=== PATIENT | male | born 1970 | race Caucasian/White ===

== ENCOUNTER 2017-05-17 17:14 | Emergency (ER) | payer SELFPAY ==
[~2017-05-17] VITALS: Ht 167.6 cm; Wt 66.0 kg
[~2017-05-17 17:14] MED LIST: CHLO500T4 PO; IBUP-1773 PO
[2017-05-17] MEDS ORDERED: KETOROLAC 30 MG/ML VIAL IVP STA (17:21)
[2017-05-17] MEDS ORDERED: fentaNYL INJECTION 100 MCG/2 ML AMP IVP STA (17:21)
[2017-05-17] MEDS ORDERED: ACETAMINOPHEN 500 MG TAB (TYLENOL) PO STA (17:21)
[2017-05-17] MEDS ORDERED: NS IV 1000 ML 1,000 ML IV ONE (17:21)
[2017-05-17 17:41] LABS: BILIRUBIN,URINE NEGATIVE (NEGATIVE); KETONES,URINE NEGATIVE (NEGATIVE); LEUKOCYTE ESTERASE ,URINE 3+ (NEGATIVE); NITRITE,URINE POSITIVE (NEGATIVE); PH,URINE 8 (5-9); PROTEIN,URINE 2+ (NEGATIVE); UROBILINOGEN,URINE NORMAL (NORMAL)
[2017-05-17 17:42] LABS: WBC,URINE TNTC /HPF
--- NOTE | 2017-05-17 17:44 | Diagnostic Imaging Report ---
INDICATION: Fever EXAM: Portable chest at 5:38 PM FINDINGS: Heart size and pulmonary vasculature are normal. The lungs are clear. There are no effusions or pneumothoraces. IMPRESSION: Negative chest. Dictated by: Dictated on workstation # [id number]
--- NOTE | 2017-05-17 18:07 | ED General ---
General Chief Complaint: Fever-Adult/Adol Stated Complaint: FEVER Nursing Triage Note: c/o fever and pain in legs Nursing Sepsis Screen: Possible Sepsis Risk Source of Information: Patient, EMS Exam Limitations: No Limitations (BYRON GORDON MD) History of Present Illness Time Seen by Provider: 17:17 Initial Comments Here by EMS with report of high fever at home and pain. Reported the pain was in his legs but then states it's actually in his groin area and it hurts when he urinates. Says it doesn't hurt so bad when he starts to urinate but golden terribly at the end of urination. States he hasn't slept for 2 days due to the fever and pain. Patient is agitated and having difficulty staying on the bed but states that he can't walk because of the pain. 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 Requesting something for the fever and pain. Timing/Duration: 2-3 Days Severity: Moderate Modifying Factors: worse with Movement Associated Systoms: No Chest Pain, No Cough, Fever/Chills, No Nausea/Vomiting, No Shortness of Air, No Weakness (BYRON GORDON MD) Allergies and Home Medications Allergies Coded Allergies: No Known Drug Allergies (Unverified , 02/17/16) Home Medications Ibuprofen 600 Mg Tablet, 600 MG PO Q8H, (Reported) LAST FILLED 11/27/15 #90 Constitutional: see HPI, chills, fever EENTM: no symptoms reported Respiratory: no symptoms reported, No short of breath, No wheezing Cardiovascular: No chest pain, No edema Gastrointestinal: abdominal pain (suprapubic), No nausea, No vomiting Genitourinary: dysuria, frequency, pain Musculoskeletal: no symptoms reported Skin: no symptoms reported Psychiatric/Neurological: No Symptoms Reported (BYRON GORDON MD) All Other Systems Reviewed Negative Unless Noted: Yes (BYRON GORDON MD) Past Olywmct-Mkutgz-Xescix Hx Patient Social History Alcohol Use: Denies Use Recreational Drug Use: Yes Drug of Choice: smokes meth Smoking Status: Current Everyday Smoker Recent Foreign Travel: No Contact w/Someone Who Travel: No Recent Infectious Disease Expo: No Physical Abuse: No Sexual Abuse: No (BYRON GORDON MD) Immunizations Up To Date Tetanus Booster (TDap): Unknown (BYRON GORDON MD) Surgeries History of Surgeries: Yes Surgeries: Tonsillectomy (BYRON GORDON MD) Respiratory History of Respiratory Disorde: No (BYRON GORDON MD) Neurological History of Neurological Disord: No Neurological Disorders: Headaches /Migraines (BYRON GORDON MD) Reproductive System Hx Reproductive Disorders: No (BYRON GORDON MD) Gastrointestinal History of Gastrointestinal Di: No (BYRON GORDON MD) Musculoskeletal History of Musculoskeletal Dis: Yes (elbow pain) (BYRON GORDON MD) Endocrine History of Endocrine Disorders: No (BYRON GORDON MD) HEENT Loss of Vision: Denies Hearing Impairment: Denies (BYRON GORDON MD) Cancer History of Cancer: No (BYRON GORDON MD) Psychosocial History of Psychiatric Problem: Yes Behavioral Health Disorders: Depression Suicide Risk Score: 0 (BYRON GORDON MD) Integumentary History of Skin or Integumenta: No (BYRON GORDON MD) Blood Transfusions History of Blood Disorders: No Adverse Reaction to a Blood Tr: No (BYRON GORDON MD) Reviewed Nursing Assessment Reviewed/Agree w Nursing PMH: Yes (BYRON GORDON MD) Family Medical History Significant Family History: No Pertinent Family Hx (BYRON GORDON MD) Physical Exam-Suspected Sepsis Physical Exam Vital Signs Vital Sign - Last 12Hours 05/17/17 05/17/17 17:19 17:30 Temp 101.2 Pulse 114 Resp 18 B/P (MAP) 112/98 Pulse Ox 99 O2 Delivery Room Air (YEMI,CLAUDIA K DO) Vital Signs Capillary Refill : Less Than 3 Seconds (BYRON GORDON MD) Blood Pressure Mean: 103 General Appearance: WD/WN, Anxious, Mild Distress HEENT: PERRL/EOMI, Pharynx Normal Neck: Non Tender, Supple Respiratory: Lungs Clear, Normal Breath Sounds Cardiovascular: No Murmur, Tachycardia Gastrointestinal: Soft, No Guarding, No Rebound, Tenderness (suprapubic region) Back: Normal Inspection, No CVA Tenderness, No Vertebral Tenderness Extremity: Normal Capillary Refill, Normal Inspection, Normal Range of Motion, Non Tender, No Calf Tenderness Neurologic/Psychiatric: Alert, Oriented x3, Other (anxious and agitated.) Skin: normal color, warm/dry (BYRON GORDON MD) Focused Exam Evaluation Lactate Level Laboratory Tests 05/17/17 17:50: Lactic Acid Level 2.82*H (CLAUDIA GALEANO DO) Lactic Acid Level Laboratory Tests Test 05/17/17 17:50 Lactic Acid Level 2.82 MMOL/L (0.50-2.00) *H (YEMI,CLAUDIA K DO) Progress/Results/Core Measures Suspected Sepsis Recent Fever Within 48 Hours: Yes Infection Criteria Present: Suspected New Infection New/Unexplained Altered Menta: No Sepsis Screen: Possible Sepsis Risk Sepsis Diagnosis: SIRS Temperature:101.2 Pulse: 114 Respiratory Rate: 18 Blood Pressure 112 /98 Mean: 103 (BYRON GORDON MD) Results/Orders Lab Results Laboratory Tests Test 05/17/17 17:25 05/17/17 17:50 Range/Units Urine Color YELLOW Urine Clarity SLIGHTLY CLOUDY Urine pH 8 5-9 Urine Specific [place] 1.010 L 1.016-1.022 Urine Protein 2+ H NEGATIVE Urine Glucose (UA) NEGATIVE NEGATIVE Urine Ketones NEGATIVE NEGATIVE Urine Nitrite POSITIVE H NEGATIVE Urine Bilirubin NEGATIVE NEGATIVE Urine Urobilinogen NORMAL NORMAL MG/DL Urine Leukocyte Esterase 3+ H NEGATIVE Urine RBC (Auto) 2+ H NEGATIVE Urine RBC 10-25 H /HPF Urine WBC TNTC H /HPF Urine Crystals NONE /LPF Urine Bacteria LARGE H /HPF Urine Casts NONE /LPF Urine Mucus NEGATIVE /LPF Urine Culture Indicated YES White Blood Count 12.2 H 4.3-11.0 10^3/uL Red Blood Count 4.04 L 4.35-5.85 10^6/uL Hemoglobin 12.6 L 13.3-17.7 G/DL Hematocrit 37 L 40-54 % Mean Corpuscular Volume 92 80-99 FL Mean Corpuscular Hemoglobin 31 25-34 PG Mean Corpuscular Hemoglobin Concent 34 32-36 G/DL Red Cell Distribution Width 12.1 10.0-14.5 % Platelet Count 383 130-400 10^3/uL Mean Platelet Volume 8.7 7.4-10.4 FL Neutrophils (%) (Auto) 93 H 42-75 % Lymphocytes (%) (Auto) 4 L 12-44 % Monocytes (%) (Auto) 3 0-12 % Eosinophils (%) (Auto) 0 0-10 % Basophils (%) (Auto) 0 0-10 % Neutrophils # (Auto) 11.3 H 1.8-7.8 X 10^3 Lymphocytes # (Auto) 0.5 L 1.0-4.0 X 10^3 Monocytes # (Auto) 0.4 0.0-1.0 X 10^3 Eosinophils # (Auto) 0.0 0.0-0.3 10^3/uL Basophils # (Auto) 0.0 0.0-0.1 10^3/uL Neutrophils % (Manual) 85 % Lymphocytes % (Manual) 5 % Monocytes % (Manual) 0 % Eosinophils % (Manual) 0 % Basophils % (Manual) 0 % Band Neutrophils 10 % Blood Morphology Comment NORMAL Prothrombin Time 13.7 12.2-14.7 SEC INR Comment 1.0 0.8-1.4 Activated Partial Thromboplast Time 32 24-35 SEC Sodium Level 133 L 135-145 MMOL/L Potassium Level 4.1 3.6-5.0 MMOL/L Chloride Level 100 98-107 MMOL/L Carbon Dioxide Level 24 21-32 MMOL/L Anion Gap 9 5-14 MMOL/L Blood Urea Nitrogen 12 7-18 MG/DL Creatinine 1.25 0.60-1.30 MG/DL Estimat Glomerular Filtration Rate > 60 BUN/Creatinine Ratio 10 Glucose Level 132 H 70-105 MG/DL Lactic Acid Level 2.82 *H 0.50-2.00 MMOL/L Calcium Level 9.5 8.5-10.1 MG/DL Total Bilirubin 0.9 0.1-1.0 MG/DL Aspartate Amino Transf (AST/SGOT) 15 5-34 U/L Alanine Aminotransferase (ALT/SGPT) 15 0-55 U/L Alkaline Phosphatase 114 40-136 U/L Total Protein 7.2 6.4-8.2 GM/DL Albumin 4.0 3.2-4.5 GM/DL (YEMI,CLAUDIA K DO) My Orders Orders - YEMI,CLAUDIA K DO Ct Abd/Pelvis Wo(Kidney Stone) (05/17/17 18:08) Abdomen/Kub 1view (05/17/17 18:08) Ceftriaxone Injection (Rocephin Injectio (05/17/17 19:00) Levofloxacin Tablet (Levaquin Tablet) (05/17/17 18:59) (CLAUDIA GALEANO DO) Medications Given in ED Current Medications Medications Dose Ordered Sig/Doyle Route Start Time Stop Time Status Last Admin Dose Admin Sodium Chloride 1,000 ml @ 0 mls/hr Q0M ONCE IV 05/17/17 17:21 05/17/17 17:24 DC 05/17/17 17:59 0 MLS/HR (CLAUDIA GALEANO DO) Vital Signs/I&O Vital Sign - Last 12Hours 05/17/17 05/17/17 17:19 17:30 Temp 101.2 Pulse 114 Resp 18 B/P (MAP) 112/98 Pulse Ox 99 O2 Delivery Room Air Intake and Output 05/18/17 00:00 Intake Total 1000 ml Balance 1000 ml (CLAUDIA GALEANO DO) Vital Signs/I&O Capillary Refill : Less Than 3 Seconds (BRYON GORDON MD) Blood Pressure Mean: 103 Progress Note : Progress Note Seen and evaluated. IV, labs, UA, chest x-ray, blood cultures and lactic acid ordered. Normal saline 1 L bolus. Fentanyl 50 g IV, Toradol 30 mg IV ordered. Acetaminophen 1000 mg by mouth ordered. Patient initially was refusing IV until somebody can hold his hand. He is waiting for his who is unable to come to the ER. He is requesting only a female nurse. Patient was able to walk to the bathroom to give the urinary sample. He did do the chest x-ray. Ultimately nursing was able to get IV access. Care transferred to Dr. Galeano at 1805 pending laboratory studies. (BYRON GORDON MD) Progress Note : Progress Note 1805--ASSUMED CARE FROM DR. GORDON, ALL STUDIES PENDING UNEVENTFUL ER STAY VITALS STABLE, TEMP DOWN AND HR DOWN AT DISMISSAL. (CLAUDIA GALEANO DO) Diagnostic Imaging Diagonstic Imaging: Xray Plain Films/CT/US/NM/MRI: chest Comments NAME: YOSEPH JIM J MED REC#: [id number] PT STATUS: REG ER : 1970 PHYSICIAN: BYRON GORDON MD ADMIT DATE: 05/17/17/ER Signed Date of Exam: 05/17/17 CHEST 1 VIEW, AP/PA ONLY INDICATION: Fever EXAM: Portable chest at 5:38 PM FINDINGS: Heart size and pulmonary vasculature are normal. The lungs are clear. There are no effusions or pneumothoraces. IMPRESSION: Negative chest. Dictated by: Dictated on workstation # [id number] Dict: 05/17/171739 Trans: 05/17/171745 Interpreted by: BYRON MEJIA MD Electronically signed by: BYRON MEJIA MD 05/17/171745 (BYRON GORDON MD) Comments KUB--NO ACUTE PROCESS CT ABDOMEN/PELVIS--NO ACUTE PROCESS, CONSTIPATION PER RADIOLOGIST REPORTS @ 1857 Reviewed: Reviewed by Me (CLAUDIA GALEANO DO) Departure Impression Impression: Primary Impression: UTI (urinary tract infection) Disposition: 01 HOME, SELF-CARE Condition: Improved Departure-Patient Inst. Referrals: [facility] (PCP/Family) Primary Care Physician Patient Instructions: Urinary Tract Infection, Adult (DC) Add. Discharge Instructions: LOTS OF CLEAR LIQUIDS--NO COFFEE, POP OR TEA, DRINK ENOUGH FLUIDS SO YOU ARE URINATING EVERY 2-3 HOURS WHILE AWAKE ALTERNATE TYLENOL AND MOTRIN EVERY 2-3 HOURS NEEDED FOR PAIN OR FEVER FOLLOW UP WITH [facility] IN 2-3 DAYS FOR FURTHER CARE RETURN TO ER IF WORSE All discharge instructions reviewed with patient and/or family. Voiced understanding. Scripts Levofloxacin (Levaquin) 500 Mg Tablet 500 MG PO DAILY for INFECTION, #10 TAB Prov: CLAUDIA GALEANO DO 05/17/17 BYRON GORDON MD May 17, 2017 18:07 CLAUDIA GALEANO DO May 17, 2017 18:58
[2017-05-17 18:13] LABS: BASOPHILS % (AUTO) 0 % (0-10); EOSINOPHILS % (AUTO) 0 % (0-10); LYMPHOCYTES # (AUTO) 0.5 X 10^3 (1.0-4.0); LYMPHOCYTES % (AUTO) 4 % (12-44); MEAN CORPUSCULAR HEMOGLOBIN 31 PG (25-34); MEAN CORPUSCULAR HGB CONC 34 G/DL (32-36); MEAN CORPUSCULAR VOLUME 92 FL (80-99); MEAN PLATELET VOLUME 8.7 FL (7.4-10.4); MONOCYTES # (AUTO) 0.4 X 10^3 (0.0-1.0); MONOCYTES % (AUTO) 3 % (0-12); NEUTROPHILS # (AUTO) 11.3 X 10^3 (1.8-7.8); NEUTROPHILS % (AUTO) 93 % (42-75); PLATELET COUNT 383 10^3/uL (130-400); RED BLOOD COUNT 4.04 10^6/uL (4.35-5.85); RED CELL DISTRIBUTION WIDTH 12.1 % (10.0-14.5); WHITE BLOOD COUNT 12.2 10^3/uL (4.3-11.0)
[2017-05-17 18:21] LABS: PROTHROMBIN TIME PATIENT 13.7 SEC (12.2-14.7)
[2017-05-17 18:32] LABS: ALANINE AMINOTRANSFERASE 15 U/L (0-55); ANION GAP 9 MMOL/L (5-14); ASPARTATE AMINO TRANSFERASE 15 U/L (5-34); BILIRUBIN,TOTAL 0.9 MG/DL (0.1-1.0); BLOOD UREA NITROGEN 12 MG/DL (7-18); BUN/CREATININE RATIO 10; CALCIUM 9.5 MG/DL (8.5-10.1); CARBON DIOXIDE 24 MMOL/L (21-32); CHLORIDE 100 MMOL/L (98-107); CREATININE SERUM 1.25 MG/DL (0.60-1.30); GFR ESTIMATED > 60; GLUCOSE 132 MG/DL (70-105); POTASSIUM 4.1 MMOL/L (3.6-5.0); SODIUM 133 MMOL/L (135-145); TOTAL PROTEIN 7.2 GM/DL (6.4-8.2)
[2017-05-17 18:38] LABS: BAND NEUTROPHILS 10 %; BASOPHILS % (MANUAL) 0 %; EOSINOPHILS % (MANUAL) 0 %; LYMPHOCYTES % (MANUAL) 5 %; NEUTROPHILS % (MANUAL) 85 %
--- NOTE | 2017-05-17 18:45 | Diagnostic Imaging Report ---
INDICATION: Left flank and groin pain. EXAM: KUB at 6:52 PM FINDINGS: Bowel gas pattern is normal. There are no pathologic masses or calcifications. IMPRESSION: Negative abdomen. Dictated by: Dictated on workstation # [id number]
--- NOTE | 2017-05-17 18:45 | Diagnostic Imaging Report ---
PROCEDURE: CT urinary tract, rule out kidney stone. TECHNIQUE: Multiple contiguous axial images were obtained through the abdomen and pelvis without the use of intravenous contrast. INDICATION: Left flank pain FINDINGS: The lung bases are clear. The liver appears normal. The gallbladder is present. Pancreas is normal. Spleen is not enlarged. Adrenals and kidneys appear normal. There is some calcific atherosclerosis of the aorta but no aneurysm. The appendix is normal. Small bowel was not dilated. There is a moderate amount of stool in the colon. The colon is otherwise unremarkable. The urinary bladder is normal. The prostate and seminal vesicles are unremarkable. IMPRESSION: Probable constipation. Dictated by: Dictated on workstation # [id number]
[2017-05-17] MEDS ORDERED: LEVOFLOXACIN 500 MG TAB (LEVAQUIN) PO STA (18:59)
[2017-05-17] MEDS ORDERED: cefTRIAXone INJECTION 1,000 MG in NS (IVPB) 50 ML IV ONE (19:00)
[2017-05-17] MEDS ORDERED: LEVO500T2 PO (19:10)
[2017-05-17 19:25] VITALS: BP 112/60
== END 2017-05-17 19:25 | disposition home or self-care (01) ==
LOC: EDUNIT# 17:14 → ER 17:15
DX: G43.909 Migraine, unspecified, not intractable, without status migrainosus; J06.9 Acute upper respiratory infection, unspecified; F32.9 Major depressive disorder, single episode, unspecified; F17.200 Nicotine dependence, unspecified, uncomplicated; F15.10 Other stimulant abuse, uncomplicated
CPT/HCPCS: 36415; 71010; 74000; 74176; 80053; 81000; 83605; 85007; 85027; 85610; 85730; 87040; 87077; 87088; 87186; 96361; 96374; 96375

== ENCOUNTER 2019-11-02 17:54 | Emergency (ER) | payer SELFPAY ==
[~2019-11-02] VITALS: Ht 177 cm; Wt 79.4 kg
[~2019-11-02 17:54] MED LIST changes: +LEVO500T2 PO
[2019-11-02] MEDS ORDERED: ETOMIDATE IV SOLN 20 MG/10 ML VIAL IV ONE (17:59)
[2019-11-02] MEDS ORDERED: NS IV 1000 ML 1,000 ML IV SCH ×3 (17:59→20:00)
[2019-11-02] MEDS ORDERED: ROCURONIUM 10 MG/ML 5 ML SYRINGE IV ONE (17:59)
[2019-11-02 18:08] LABS: BASOPHILS % (AUTO) 1 % (0-10); EOSINOPHILS # (AUTO) 0.3 10^3/uL (0.0-0.3); EOSINOPHILS % (AUTO) 3 % (0-10); HEMATOCRIT 46 % (40-54); HEMOGLOBIN 15.5 G/DL (13.3-17.7); LYMPHOCYTES # (AUTO) 4.2 X 10^3 (1.0-4.0); LYMPHOCYTES % (AUTO) 48 % (12-44); MEAN CORPUSCULAR HEMOGLOBIN 32 PG (25-34); MEAN CORPUSCULAR HGB CONC 34 G/DL (32-36); MEAN CORPUSCULAR VOLUME 96 FL (80-99); MEAN PLATELET VOLUME 8.5 FL (7.4-10.4); MONOCYTES # (AUTO) 0.7 X 10^3 (0.0-1.0); MONOCYTES % (AUTO) 8 % (0-12); NEUTROPHILS # (AUTO) 3.6 X 10^3 (1.8-7.8); NEUTROPHILS % (AUTO) 41 % (42-75); PLATELET COUNT 357 10^3/uL (130-400); RED CELL DISTRIBUTION WIDTH 12.9 % (10.0-14.5); WHITE BLOOD COUNT 8.7 10^3/uL (4.3-11.0)
[2019-11-02] MEDS ORDERED: PROPOFOL DRIP (ICU) 100 ML IV ONE (18:09)
[2019-11-02 18:12] LABS: BILIRUBIN,URINE NEGATIVE (NEGATIVE); CLARITY,URINE CLEAR; COLOR,URINE YELLOW; GLUCOSE, URINE (UA) NEGATIVE (NEGATIVE); KETONES,URINE NEGATIVE (NEGATIVE); LEUKOCYTE ESTERASE ,URINE NEGATIVE (NEGATIVE); NITRITE,URINE NEGATIVE (NEGATIVE); PH,URINE 6.5 (5-9); PROTEIN,URINE NEGATIVE (NEGATIVE)
--- NOTE | 2019-11-02 18:15 | NUR ---
1815 Preoxygenating patient. BP 160/106 Pulse 129 SPO2 100%
--- NOTE | 2019-11-02 18:23 | NUR ---
1817 20MG ETOMIDATE 1818 50MG ROCURONIUM 1819 + COLOR CHANGE. 21 AT THE TEETH. #8 ET TUBE. 1820 16Fr OG TUBE 1823 PROPOFOL DRIP INITIATED (30MCG/KG/HR PER PROVIDER ORDER).
--- NOTE | 2019-11-02 18:24 | NUR ---
VENT SETTINGS- FIO2 21%, PEEP 5, RATE 18, TITAL VOLUME 500.
[2019-11-02 18:27] LABS: AMPHETAMINE SCREEN, URINE POSITIVE (NEGATIVE); BARBITURATE SCREEN URINE NEGATIVE (NEGATIVE); BENZODIAZEPINES SCREEN URINE NEGATIVE (NEGATIVE); CANNABINOID SCREEN, URINE NEGATIVE (NEGATIVE); COCAINE SCREEN URINE NEGATIVE (NEGATIVE); METHADONE STAT NEGATIVE (NEGATIVE); METHAMPHETAMINE SCREEN URINE S POSITIVE (NEGATIVE); OPIATE SCREEN URINE NEGATIVE (NEGATIVE); OXYCODONE STAT NEGATIVE (NEGATIVE); PROPOXYPHENE STAT NEGATIVE (NEGATIVE); TRICYCLIC ANTIDEPRESSANTS SCRE NEGATIVE (NEGATIVE)
[2019-11-02 18:30] LABS: ALANINE AMINOTRANSFERASE 58 U/L (0-55); ALBUMIN 4.6 GM/DL (3.2-4.5); ALKALINE PHOSPHATASE 133 U/L (40-136); BILIRUBIN,TOTAL 0.2 MG/DL (0.1-1.0); BUN/CREATININE RATIO 9; CALCIUM 9.5 MG/DL (8.5-10.1); CARBON DIOXIDE 25 MMOL/L (21-32); CHLORIDE 107 MMOL/L (98-107); CREATININE SERUM 1.04 MG/DL (0.60-1.30); GFR ESTIMATED > 60; POTASSIUM 3.9 MMOL/L (3.6-5.0); SALICYLATE < 5.0 MG/DL (5.0-20.0); SODIUM 143 MMOL/L (135-145); TOTAL PROTEIN 7.8 GM/DL (6.4-8.2)
[2019-11-02 18:31] LABS: ABG BASE EXCESS 2.2 MMOL/L (-2.5-2.5); ABG OXYGEN SATURATION 99 % (94-100); ABG PCO2 41 MMHG (35-45); ABG PH 7.42 (7.37-7.43); ABG PO2 116 MMHG (79-93); ABG TCO2 27.4 MMOL/L (21.0-31.0); ALLENS TEST POSITIVE
[2019-11-02 18:32] LABS: PATIENT TEMP 37.5; VENTILATOR NO
[2019-11-02 18:33] LABS: ACETAMINOPHEN < 10 UG/ML (10-30)
[2019-11-02] MEDS ORDERED: DEXTROSE 50% 50 ML (IMS) SYR ONE (18:33)
[2019-11-02 18:35] LABS: GLUCOSE 51 MG/DL (70-105)
--- NOTE | 2019-11-02 18:36 | ED Neurological Problem ---
General Chief Complaint: Overdose Stated Complaint: OVERDOSE Nursing Triage Note: pt to rm 7 by wheelchair with complaint of overdose. per friend pt took diphenhydramine. states bottle was brand new and had 96. bottle now has 42 remaining. pts eyes are open, but not reactive to stimuli. Nursing Sepsis Screen: No Definite Risk Source: patient, family Exam Limitations: clinical condition History of Present Illness Date Seen by Provider: Nov 02, 2019 Time Seen by Provider: 17:50 Initial Comments Patient is brought in by his daughter in law to the emergency room by private conveyance. Patient does not contribute anything to the history. He can be made to open his eyes with noxious stimuli however he will not acknowledge the examiner speaking to him shaking his head squeezing hands etc. His eyes dark furtively around the room. He has a history of having taken most of a brand-new bottle of diphenhydramine 50 mg tablets. The bottle originally had 96 tablets and has 42 left. This would be about 54 tablets of 50 mg diphenhydramine. No history of fever. Unknown intention for taking the medication. He does have a history of using methamphetamines. Patient and family give no more meaningful history. After the examiner arrived in the ER the patient's family had ordered and sent out to the vehicle to wait. Security was sent out to collect family and bring them to the family room for further history and security states they were unable to find anybody in the parking lot. Allergies and Home Medications Allergies Coded Allergies: No Known Drug Allergies (Unverified , 02/17/16) Home Medications Ibuprofen 600 Mg Tablet, 600 MG PO Q8H, (Reported) LAST FILLED 11/27/15 #90 Levofloxacin 500 Mg Tablet, 500 MG PO DAILY Prescribed by: CLAUDIA BRAGG on 05/17/171909 Patient Home Medication List Home Medication List Reviewed: Yes Review of Systems Review of Systems Constitutional: see HPI (the patient contributes no history) Past Rvewhaj-Bylllu-Ctwfrm Hx Patient Social History Alcohol Use: Denies Use Recreational Drug Use: Yes Drug of Choice: smokes meth Smoking Status: Current Everyday Smoker Recent Foreign Travel: No Contact w/Someone Who Travel: No Recent Infectious Disease Expo: No Immunizations Up To Date Tetanus Booster (TDap): Unknown PED Vaccines UTD: Yes Past Medical History Surgeries: Yes Tonsillectomy Respiratory: No Neurological: No Headaches /Migraines Reproductive Disorders: No Gastrointestinal: No Musculoskeletal: Yes (elbow pain) Endocrine: No Loss of Vision: Denies Hearing Impairment: Denies Cancer: No Psychosocial: Yes Depression Integumentary: No Blood Disorders: No Adverse Reaction/Blood Tranf: No Family Medical History No Pertinent Family Hx Physical Exam Vital Signs Vital Signs - First Documented 11/02/19 17:54 Temp 37.5 Pulse 136 Resp 28 B/P (MAP) 161/109 (126) Pulse Ox 100 O2 Delivery Room Air Capillary Refill : Less Than 3 Seconds Height, Weight, BMI Height: 5'6" Weight: 145lbs. 6.4oz. 65.196978et; 25.00 BMI Method:Stated General Appearance: WD/WN, moderate distress, other (of hot, dry, not sweating) HEENT: PERRL/EOMI, normal ENT inspection, TMs normal; No pharynx normal (oropharynx is dry) Neck: full range of motion, supple, normal inspection Respiratory: chest non-tender, lungs clear, normal breath sounds, respiratory distress (30 breaths per minute) Cardiovascular: normal peripheral pulses, regular rate, rhythm, no edema, tachycardia (130-140) Peripheral Pulses: 2+ Radial Pulses (R), 2+ Radial Pulses (L) Gastrointestinal: normal bowel sounds, non tender, soft Extremities: non-tender, normal inspection, no pedal edema Neurologic/Psychiatric: disoriented x 3, other (nonverbal, agitated) Crainal Nerves: other (pupils 3 mm equal and nonreactive to light) Skin: normal color, warm/dry Procedures/Interventions Reason for Intubation: GCS with pupil score 6 points. Date of ETT Placement: Nov 02, 2019 Time of ETT Placement: 18:19 Intubation Method: orotracheal Tube Size: 8.0 Medications: Etomidate (20 mg), Rocuronium (50 mg) Positive End Tide CO2: Yes Breath Sounds after Intubation: bilateral-equal Intubation Complications: no complications Post Intubation Xray: Yes Explained the situation and need for intubation to the patient and he made no indication one way or the other that he could understand her here what I was saying despite multiple attempts. Family was not available and it was decided to intubate him based on emergency need. Staff was summonsed and the room and patient were prepared. We used a [employer] video endoscope to get good clean access of his upper airway and vocal cords after etomidate and rocuronium were administered. We're able to easily pass an 8.0 ET tube inflate the cuff at 21 cm at the upper gums. We secured it in place had good fogging of the tube, color change on capnography paper indicator and bilateral, symmetric breath sounds without any sounds over the epigastric region. Patient's oxygen sats did not go below 100%. Ventilator was started at 500 tidal volume, 18 respiratory, PEEP of 5 and 21% FiO2. Patient is tolerating this well. Propofol was initiated. Progress/Results/Core Measures Results/Orders Lab Results Laboratory Tests Test 11/02/19 18:02 11/02/19 18:04 11/02/19 18:05 11/02/19 18:09 Range/Units White Blood Count 8.7 4.3-11.0 10^3/uL Red Blood Count 4.78 4.35-5.85 10^6/uL Hemoglobin 15.5 13.3-17.7 G/DL Hematocrit 46 40-54 % Mean Corpuscular Volume 96 80-99 FL Mean Corpuscular Hemoglobin 32 25-34 PG Mean Corpuscular Hemoglobin Concent 34 32-36 G/DL Red Cell Distribution Width 12.9 10.0-14.5 % Platelet Count 357 130-400 10^3/uL Mean Platelet Volume 8.5 7.4-10.4 FL Neutrophils (%) (Auto) 41 L 42-75 % Lymphocytes (%) (Auto) 48 H 12-44 % Monocytes (%) (Auto) 8 0-12 % Eosinophils (%) (Auto) 3 0-10 % Basophils (%) (Auto) 1 0-10 % Neutrophils # (Auto) 3.6 1.8-7.8 X 10^3 Lymphocytes # (Auto) 4.2 H 1.0-4.0 X 10^3 Monocytes # (Auto) 0.7 0.0-1.0 X 10^3 Eosinophils # (Auto) 0.3 0.0-0.3 10^3/uL Basophils # (Auto) 0.0 0.0-0.1 10^3/uL Sodium Level 143 135-145 MMOL/L Potassium Level 3.9 3.6-5.0 MMOL/L Chloride Level 107 98-107 MMOL/L Carbon Dioxide Level 25 21-32 MMOL/L Anion Gap 11 5-14 MMOL/L Blood Urea Nitrogen 9 7-18 MG/DL Creatinine 1.04 0.60-1.30 MG/DL Estimat Glomerular Filtration Rate > 60 BUN/Creatinine Ratio 9 Glucose Level 51 *L 70-105 MG/DL Calcium Level 9.5 8.5-10.1 MG/DL Corrected Calcium 8.5-10.1 MG/DL Total Bilirubin 0.2 0.1-1.0 MG/DL Aspartate Amino Transf (AST/SGOT) 38 H 5-34 U/L Alanine Aminotransferase (ALT/SGPT) 58 H 0-55 U/L Alkaline Phosphatase 133 40-136 U/L Total Protein 7.8 6.4-8.2 GM/DL Albumin 4.6 H 3.2-4.5 GM/DL TSH Frio Testing 2.08 0.35-4.94 UIU/ML Salicylates Level < 5.0 L 5.0-20.0 MG/DL Acetaminophen Level < 10 L 10-30 UG/ML Serum Alcohol < 10 <10 MG/DL Total Creatine Kinase 138 30-200 U/L Urine Color YELLOW Urine Clarity CLEAR Urine pH 6.5 5-9 Urine Specific [place] <=1.005 1.016-1.022 Urine Protein NEGATIVE NEGATIVE Urine Glucose (UA) NEGATIVE NEGATIVE Urine Ketones NEGATIVE NEGATIVE Urine Nitrite NEGATIVE NEGATIVE Urine Bilirubin NEGATIVE NEGATIVE Urine Urobilinogen 0.2 < = 1.0 MG/DL Urine Leukocyte Esterase NEGATIVE NEGATIVE Urine RBC (Auto) NEGATIVE NEGATIVE Urine RBC RARE /HPF Urine WBC NONE /HPF Urine Crystals PRESENT H /LPF Urine Amorphous Sediment RARE ISA URATES H /LPF Urine Bacteria TRACE /HPF Urine Casts NONE /LPF Urine Mucus NEGATIVE /LPF Urine Culture Indicated NO Urine Opiates Screen NEGATIVE NEGATIVE Urine Oxycodone Screen NEGATIVE NEGATIVE Urine Methadone Screen NEGATIVE NEGATIVE Urine Propoxyphene Screen NEGATIVE NEGATIVE Urine Barbiturates Screen NEGATIVE NEGATIVE Ur Tricyclic Antidepressants Screen NEGATIVE NEGATIVE Urine Phencyclidine Screen NEGATIVE NEGATIVE Urine Amphetamines Screen POSITIVE H NEGATIVE Urine Methamphetamines Screen POSITIVE H NEGATIVE Urine Benzodiazepines Screen NEGATIVE NEGATIVE Urine Cocaine Screen NEGATIVE NEGATIVE Urine Cannabinoids Screen NEGATIVE NEGATIVE Blood Gas Puncture Site RIGHT WRIST Blood Gas Patient Temperature 37.5 Arterial Blood pH 7.42 7.37-7.43 Arterial Blood Partial Pressure CO2 41 35-45 MMHG Arterial Blood Partial Pressure O2 116 H 79-93 MMHG Arterial Blood HCO3 26 23-27 MMOL/L Arterial Blood Total CO2 27.4 21.0-31.0 MMOL/L Arterial Blood Oxygen Saturation 99 94-100 % Arterial Blood Base Excess 2.2 -2.5-2.5 MMOL/L Edgardo Test POSITIVE Blood Gas Ventilator Setting NO Blood Gas Inspired Oxygen UNK Test 11/02/19 19:58 Range/Units Glucometer 93 70-110 MG/DL My Orders Orders - GABRIELA ZARATE Ed Iv/Invasive Line Start (11/02/19 18:24) Ns Iv 1000 Ml (Sodium Chloride 0.9%) (11/02/19 18:24) Creatine Kinase (11/02/19 18:24) Arterial Blood Gas (11/02/19 18:24) Ed Iv/Invasive Line Start (11/02/19 18:26) Ed Iv/Invasive Line Start (11/02/19 18:26) D50w (Emergency) Syringe (Dextrose 50% 5 (11/02/19 18:45) D50w (Emergency) Syringe (Dextrose 50% 5 (11/02/19 18:33) Chest 1 View, Ap/Pa Only (11/02/19 18:45) Propofol Injection (Diprivan Injection) (11/02/19 19:00) Midazolam Injection (Versed Injection) (11/02/19 19:15) Chest 1 View, Ap/Pa Only (11/02/19 19:26) Etomidate Injection (Amidate Injection) (11/02/19 17:59) Rocuronium 5 Ml Syringe (Rocuronium 5 Ml (11/02/19 17:59) Ns Iv 1000 Ml (Sodium Chloride 0.9%) (11/02/19 20:00) Accucheck Stat ONCE (11/02/19 19:51) Lorazepam Injection (Ativan Injection) (11/02/19 20:00) D5 Ns 1000 Ml Iv Solution (Dextrose 5%/0 (11/02/19 20:15) Fentanyl Injection (Sublimaze Injection (11/02/19 20:30) Medications Given in ED Current Medications Medications Dose Ordered Sig/Doyle Route Start Time Stop Time Status Last Admin Dose Admin Dextrose 50 ml ONCE ONCE IV 11/02/19 18:45 11/02/19 18:46 DC 11/02/19 18:39 50 ML Fentanyl Citrate 200 mcg ONCE ONCE IVP 11/02/19 20:30 11/02/19 20:31 DC 11/02/19 20:34 200 MCG Lorazepam 2 mg ONCE ONCE IVP 11/02/19 20:00 11/02/19 20:01 DC 11/02/19 20:11 2 MG Midazolam HCl 5 mg ONCE ONCE IVP 11/02/19 19:15 11/02/19 19:16 DC 11/02/19 19:10 5 MG Vital Signs/I&O 11/02/19 11/02/19 11/02/19 17:54 18:23 21:20 Temp 37.5 36.6 Pulse 136 96 71 Resp 28 18 B/P (MAP) 161/109 (126) 121/80 Pulse Ox 100 98 O2 Delivery Room Air Mechanical Ventilator 11/03/19 00:00 Intake Total 2000 ml Balance 2000 ml Blood Pressure Mean: 126 Progress Progress Note #1: Time: 18:42 Progress Note The patient is acute hypo-active delirium likely secondary to Benadryl overdose. We have initiated a liter of fluids and will give a second liter. We'll check a CK looking for rhabdomyolysis. Will check labs, drug screen, alcohol Tylenol, aspirin etc. Methamphetamines were positive. We'll get an EKG. After consulting with poison control did recommend to check every couple hours and EKG serially looking for QRS greater than 110 ms. If so give 2 mEq per kilogram of sodium bicarbonate. They suggest IV fluids and caution rhabdomyolysis. They also suggest benzos if the patient has seizures. We are going to use propofol for sed ation. Blood sugar was noted to be 51 on the CMP so we initiated D50 1 amp. Poison control was consulted shortly after the patient arrived approximately 1830. Progress Note #2: Time: 20:10 Progress Note Blood sugar was 95 on subsequent check after the amp of D50. Plan to put him on D5 normal saline at 100 cc per hour. Repeat EKG at 2100. He's had some hypertension so we gave him 5 mg of Versed. This only mildly helped so we gave him 2 more milligrams of Ativan. If he still having significant elevation of blood pressure with systolic above 180 or diastolic above 110 and will give him 200 g of fentanyl. If that doesn't help then it is likely not due to pain and may be more related to his methamphetamines and diphenhydramine. Since diphenhydramine overdose can cause hypotension we will be very cautious about treating his hypertension at this time. Initial ECG Impression Date: Nov 02, 2019 Initial ECG Impression Time: 19:09 Initial ECG Rate: 90 Initial ECG Rhythm: Normal Sinus Initial ECG Intervals: QRS (86 ms) Initial ECG Impression: Normal Comment No click a relevant ST changes. Diagnostic Imaging Diagonstic Imaging: Xray Plain Films/CT/US/NM/MRI: chest (1v) Comments NAME: YOSEPH JIM Ebury REC#: [id number] PT STATUS: REG ER : 1970 PHYSICIAN: GABRIELA ZARATE MD ADMIT DATE: 11/02/19/ER Signed Date of Exam:11/02/19 CHEST 1 VIEW, AP/PA ONLY EXAMINATION: Chest, 1 view. HISTORY: Shortness of breath. COMPARISON: 05/17/2017. FINDINGS: Endotracheal tube is high at 8 cm above the peri. Gastric tube tip terminates in the stomach. There is no edema or pneumonia. No pleural effusion or pneumothorax. Heart size is normal. IMPRESSION: Endotracheal tube is high at 8 cm above the peri. Dictated by: Dictated on workstation # [id number] Dict: 11/02/191855 Trans: 11/02/191912 [facility] [id number] Interpreted by: DEBBIE MARCUS MD Electronically signed by: DEBBIE MARCUS MD 11/02/191912 Reviewed: Reviewed by Me Diagonstic Imaging: Xray Plain Films/CT/US/NM/MRI: chest (1v) Comments No interval acute findings on the chest x-ray the ET tube is in satisfactory position. NAME: YOSEPH JIM Ebury REC#: [id number] PT STATUS: REG ER : 1970 PHYSICIAN: GABRIELA ZARATE MD ADMIT DATE: 11/02/19/ER Signed Date of Exam:11/02/19 CHEST 1 VIEW, AP/PA ONLY EXAMINATION: Single view of the chest. INDICATION: Overdose. COMPARISON: Prior study from earlier the same day. FINDINGS: When compared to the prior examination, the endotracheal tube appears to have been advanced. This is below the clavicles and above the peri by approximately 5 cm. An enteric tube extends to the stomach. Lungs appear clear. There is no focal infiltrate. There is no effusion. There is no pneumothorax. Heart size is normal. IMPRESSION: 1. Endotracheal tube and enteric tube appear appropriately positioned. 2. No evidence of an acute cardiopulmonary process. Dictated by: Dictated on workstation # [id number] Dict: 11/02/191947 Trans: 11/02/191956 [id number] Interpreted by: ANN HERRERA MD Electronically signed by: ANN HERRERA MD 11/02/191956 Reviewed: Reviewed by Me Departure Impression Primary Impression: Diphenhydramine overdose Qualified Codes: T45.0X4A - Poisoning by antiallergic and antiemetic drugs, undetermined, initial encounter Additional Impressions: Methamphetamine abuse Acute hypoactive delirium due to multiple etiologies Hypoglycemia Endotracheally intubated Disposition: 02 XFER SHT-TRM HOSP Condition: Stable Transfer Transfer Reason: Diversion (icu) Time Spoke to Accepting Phy: 19:05 Transfer Progress Notes Discussed case with director enterprise sales and Dr Barraza (sp?) 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 Dr Barraza accepted Transfer Facility: [place], [place] Method of Transfer: EMS Departure-Patient Inst. Referrals: [facility] (PCP/Family) Primary Care Physician Patient Instructions: ALCOHOL AND SUBSTANCE ABUSE GABRIELA ZARATE Nov 02, 2019 18:36
[2019-11-02 18:42] LABS: BACTERIA,URINE TRACE /HPF; RBC,URINE RARE /HPF
[2019-11-02 18:43] LABS: AMORPHOUS SEDIMENT,UR RARE AMOR URATES /LPF
[2019-11-02] MEDS ORDERED: DEXTROSE 50% 50 ML (IMS) SYR IV ONE (18:45)
--- NOTE | 2019-11-02 18:49 | NUR ---
Provider et this RN in family room with pt [id number], Bianka. Bianka reports pt took 54 50mg diphenhydramine, roverto dish soap, et charcoal at unknown time on this day. Bianka reports hx suicide attempts et inpatient tx at [facility].
[2019-11-02] MEDS ORDERED: PROPOFOL INJECTION 50 ML IV SCH (19:00)
--- NOTE | 2019-11-02 19:05 | Diagnostic Imaging Report ---
EXAMINATION: Chest, 1 view. HISTORY: Shortness of breath. COMPARISON: 05/17/2017. FINDINGS: Endotracheal tube is high at 8 cm above the peri. Gastric tube tip terminates in the stomach. There is no edema or pneumonia. No pleural effusion or pneumothorax. Heart size is normal. IMPRESSION: Endotracheal tube is high at 8 cm above the peri. Dictated by: Dictated on workstation # [id number]
[2019-11-02] MEDS ORDERED: MIDAZOLAM 5 MG/5 ML (VERSED) VIAL IVP ONE (19:15)
--- NOTE | 2019-11-02 19:55 | Diagnostic Imaging Report ---
EXAMINATION: Single view of the chest. INDICATION: Overdose. COMPARISON: Prior study from earlier the same day. FINDINGS: When compared to the prior examination, the endotracheal tube appears to have been advanced. This is below the clavicles and above the peri by approximately 5 cm. An enteric tube extends to the stomach. Lungs appear clear. There is no focal infiltrate. There is no effusion. There is no pneumothorax. Heart size is normal. IMPRESSION: 1. Endotracheal tube and enteric tube appear appropriately positioned. 2. No evidence of an acute cardiopulmonary process. Dictated by: Dictated on workstation # [id number]
[2019-11-02] MEDS ORDERED: LORazepam INJ 2 MG/ML (ATIVAN) VIAL IVP ONE (20:00)
[2019-11-02] MEDS ORDERED: D5 NS 1000 ML IV SOLUTION 1,000 ML IV SCH (20:15)
--- NOTE | 2019-11-02 20:15 | NUR ---
Poison control updated.
[2019-11-02] MEDS ORDERED: fentaNYL INJECTION 100 MCG/2 ML AMP IVP ONE (20:30)
[2019-11-02 21:20] VITALS: BP 121/80
--- NOTE | 2019-11-02 21:20 | NUR ---
900ml urinary output.
--- NOTE | 2019-11-03 11:01 | NUR ---
[id number], Bianka contacted this RN regarding pt missing wallet et x1 shoe. This RN explained to Bianka pt arrived to this ED with [place] ID in back L pocket et no wallet. This RN notified [employer] that both shoes were sent with pt belongings to [facility] via [facility]. Notified house sup. et core manager.
== END 2019-11-02 21:20 | disposition short-term general hospital (02) ==
LOC: EDUNIT# 17:54 → ER 17:58
DX: T45.0X4A Poisoning by antiallergic and antiemetic drugs, undetermined, initial encounter (principal); F15.10 Other stimulant abuse, uncomplicated; F05 Delirium due to known physiological condition; E16.2 Hypoglycemia, unspecified; F32.9 Major depressive disorder, single episode, unspecified; F17.200 Nicotine dependence, unspecified, uncomplicated
CPT/HCPCS: 31500; 36415; 51702; 71045; 80053; 80306; 80320; 80329; 81000; 82550; 82805; 82962; 84443; 85025; 93005; 93041; 96361; 96374; 96375

== ENCOUNTER 2022-03-22 10:48 | Emergency (ER) | payer SELFPAY ==
[~2022-03-22] VITALS: Ht 180 cm; Wt 70.0 kg
[2022-03-22] MEDS ORDERED: NS IV 1000 ML 1,000 ML IV SCH ×2 (11:15→12:15)
[2022-03-22] MEDS ORDERED: ACETAMINOPHEN 325 MG TABLET PO STA (11:24)
[2022-03-22] MEDS ORDERED: KETOROLAC 30 MG/ML VIAL IVP STA (11:24)
[2022-03-22 11:38] LABS: BILIRUBIN,URINE NEGATIVE (NEGATIVE); CLARITY,URINE CLEAR; COLOR,URINE YELLOW; GLUCOSE, URINE (UA) TRACE (NEGATIVE); KETONES,URINE NEGATIVE (NEGATIVE); LEUKOCYTE ESTERASE ,URINE 1+ (NEGATIVE); NITRITE,URINE NEGATIVE (NEGATIVE); PROTEIN,URINE TRACE (NEGATIVE)
--- NOTE | 2022-03-22 11:41 | ED Abdominal Pain ---
General Chief Complaint: Abdominal/GI Problems Stated Complaint: FEVER,BACK, RLQ PAIN Nursing Triage Note: PT STATES LOW BACK PAIN, METH YESTERDAY TO HELP WITH THE PAIN, RLQ PAIN YESTERDAY, TEMP 37.8 AT TRIAGE History of Present Illness Date Seen by Provider: Mar 22, 2022 Time Seen by Provider: 11:05 Initial Comments 51 year old male presents with RLQ pain that began on 01/18/2022, no associated nausea or vomiting. He was evaluated by [facility] yesterday and referred to the ER because he was unable to urinate and they were concerned about is appendix. He used Meth to assist with pain, no OTC medications. No previous abdominal surgeries or history of kidney stone. Had COVID approx 1 year ago, no vaccines. Denies known exposure. Timing/Duration: 2-3 Days Severity/Quality: Moderate (7-9/10) Location: RLQ Radiation: Flank (Right greater than left) Associated Symptoms: Denies Symptoms Allergies and Home Medications Allergies Coded Allergies: No Known Drug Allergies (Unverified , 02/17/16) Patient Home Medication List Home Medication List Reviewed: Yes Hydrocodone/Acetaminophen (Hydrocodone-Acetamin 5-325 mg) 5 Mg-325 Mg Tablet, 1 TAB PO Q6H PRN for PAIN-MODERATE (5-7) Prescribed by: DYLAN MOSHER on 03/22/22 1304 Ibuprofen (Ibuprofen) 600 Mg Tablet, 600 MG PO Q8H, (Reported) Entered as Reported by: SAMANTHA KIRAN on 02/18/16 1001 Levofloxacin (Levaquin) 500 Mg Tablet, 500 MG PO DAILY Prescribed by: CLAUDIA BRAGG on 05/17/17 1910 Nitrofurantoin Macrocrystal (Nitrofurantoin) 100 Mg Capsule, 100 MG PO BID Prescribed by: DYLAN MOSHER on 03/22/22 1302 Ondansetron (Ondansetron Odt) 4 Mg Tab.rapdis, 4 MG PO Q6H PRN for NAUSEA/VOMITING Prescribed by: DYLAN MOSHER on 03/22/22 1302 Tamsulosin HCl (Flomax) 0.4 Mg Cap, 0.4 MG PO DAILY Prescribed by: DYLAN MOSHER on 03/22/22 1302 Review of Systems Review of Systems Constitutional: see HPI, fever (has not checked temp but chills) EENTM: No Symptoms Reported, See HPI Respiratory: No Symptoms Reported, See HPI Cardiovascular: No Symptoms Reported, See HPI Gastrointestinal: See HPI, Abdominal Pain; Denies Constipated, Denies Diarrhea, Denies Nausea; Poor Appetite, Poor Fluid Intake; Denies Vomiting Genitourinary: See HPI, Flank Pain; Denies Hematuria All Other Systems Reviewed Negative Unless Noted: Yes Past Leuldhj-Bzlmtb-Ptfhfd Hx Immunizations Up To Date Tetanus Booster (TDap): Unknown PED Vaccines UTD: Yes Past Medical History Surgeries: Yes Tonsillectomy Respiratory: No Neurological: No Headaches /Migraines Reproductive Disorders: No Gastrointestinal: No Musculoskeletal: Yes (elbow pain) Endocrine: No Loss of Vision: Denies Hearing Impairment: Denies Cancer: No Psychosocial: Yes Depression Integumentary: No Blood Disorders: No Adverse Reaction/Blood Tranf: No Family Medical History Reviewed Nursing Family Hx No Pertinent Family Hx Physical Exam Vital Signs Vital Signs - First Documented 03/22/22 11:13 Temp 37.8 Pulse 117 Resp 22 B/P (MAP) 178/95 (122) Pulse Ox 100 O2 Delivery Room Air Capillary Refill : Less Than 3 Seconds Height/Weight/BMI Height: 5'6" Weight: 145lbs. 6.4oz. [id number]; 21.00 BMI Method:Stated General Appearance: mild distress (secondary to pain) HEENT: PERRL/EOMI, TMs normal, pharynx normal, other (multiple fractured or missing teeth, gingivitis) Neck: non-tender, full range of motion, supple, normal inspection Respiratory: chest non-tender, lungs clear, normal breath sounds Cardiovascular: normal peripheral pulses, regular rate, rhythm Gastrointestinal: normal bowel sounds, non tender; No guarding, No rebound, No tenderness Extremities: normal range of motion, non-tender, normal inspection, normal capillary refill Back: normal inspection, CVA tenderness (R), CVA tenderness (L) Neurologic/Psychiatric: no motor/sensory deficits, alert, normal mood/affect, oriented x 3 Skin: normal color, warm/dry Procedures/Interventions Date of ETT Placement: Nov 02, 2019 Time of ETT Placement: 1818 Progress/Results/Core Measures Results/Orders Lab Results Laboratory Tests Test 03/22/22 11:15 03/22/22 11:20 03/22/22 11:35 Range/Units Urine Color YELLOW Urine Clarity CLEAR Urine pH 8.0 5-9 Urine Specific [place] 1.015 L 1.016-1.022 Urine Protein TRACE H NEGATIVE Urine Glucose (UA) TRACE H NEGATIVE Urine Ketones NEGATIVE NEGATIVE Urine Nitrite NEGATIVE NEGATIVE Urine Bilirubin NEGATIVE NEGATIVE Urine Urobilinogen 0.2 < = 1.0 MG/DL Urine Leukocyte Esterase 1+ H NEGATIVE Urine RBC (Auto) NEGATIVE NEGATIVE Urine RBC RARE /HPF Urine WBC 5-10 H /HPF Urine Squamous Epithelial Cells 0-2 /HPF Urine Crystals NONE /LPF Urine Bacteria TRACE /HPF Urine Casts NONE /LPF Urine Mucus NEGATIVE /LPF Urine Culture Indicated YES Urine Opiates Screen NEGATIVE NEGATIVE Urine Oxycodone Screen NEGATIVE NEGATIVE Urine Methadone Screen NEGATIVE NEGATIVE Urine Propoxyphene Screen NEGATIVE NEGATIVE Urine Barbiturates Screen NEGATIVE NEGATIVE Ur Tricyclic Antidepressants Screen NEGATIVE NEGATIVE Urine Phencyclidine Screen NEGATIVE NEGATIVE Urine Amphetamines Screen POSITIVE H NEGATIVE Urine Methamphetamines Screen POSITIVE H NEGATIVE Urine Benzodiazepines Screen NEGATIVE NEGATIVE Urine Cocaine Screen NEGATIVE NEGATIVE Urine Cannabinoids Screen NEGATIVE NEGATIVE Influenza Type A (RT-PCR) Not Detected Not Detecte Influenza Type B (RT-PCR) Not Detected Not Detecte SARS-CoV-2 RNA (RT-PCR) Not Detected Not Detecte White Blood Count 15.6 H 4.3-11.0 10^3/uL Red Blood Count 4.21 L 4.30-5.52 10^6/uL Hemoglobin 13.4 13.3-17.7 g/dL Hematocrit 40 40-54 % Mean Corpuscular Volume 95 80-99 fL Mean Corpuscular Hemoglobin 32 25-34 pg Mean Corpuscular Hemoglobin Concent 34 32-36 g/dL Red Cell Distribution Width 12.6 10.0-14.5 % Platelet Count 259 130-400 10^3/uL Mean Platelet Volume 8.6 L 9.0-12.2 fL Immature Granulocyte % (Auto) 1 % Neutrophils (%) (Auto) 81 H 42-75 % Lymphocytes (%) (Auto) 9 L 12-44 % Monocytes (%) (Auto) 8 0-12 % Eosinophils (%) (Auto) 1 0-10 % Basophils (%) (Auto) 0 0-10 % Neutrophils # (Auto) 12.7 H 1.8-7.8 10^3/uL Lymphocytes # (Auto) 1.5 1.0-4.0 10^3/uL Monocytes # (Auto) 1.2 H 0.0-1.0 10^3/uL Eosinophils # (Auto) 0.1 0.0-0.3 10^3/uL Basophils # (Auto) 0.0 0.0-0.1 10^3/uL Immature Granulocyte # (Auto) 0.1 0.0-0.1 10^3/uL Neutrophils % (Manual) 75 % Lymphocytes % (Manual) 11 % Monocytes % (Manual) 14 % Eosinophils % (Manual) 0 % Basophils % (Manual) 0 % Band Neutrophils 0 % Blood Morphology Comment NORMAL Sodium Level 133 L 135-145 MMOL/L Potassium Level 4.0 3.6-5.0 MMOL/L Chloride Level 97 L 98-107 MMOL/L Carbon Dioxide Level 26 21-32 MMOL/L Anion Gap 10 5-14 MMOL/L Blood Urea Nitrogen 12 7-18 MG/DL Creatinine 1.06 0.60-1.30 MG/DL Estimat Glomerular Filtration Rate 85 BUN/Creatinine Ratio 11 Glucose Level 176 H 70-105 MG/DL Calcium Level 9.3 8.5-10.1 MG/DL Corrected Calcium 9.3 8.5-10.1 MG/DL Total Bilirubin 0.9 0.1-1.0 MG/DL Aspartate Amino Transf (AST/SGOT) 21 5-34 U/L Alanine Aminotransferase (ALT/SGPT) 47 0-55 U/L Alkaline Phosphatase 117 40-136 U/L C-Reactive Protein High Sensitivity 7.84 H 0.00-0.50 MG/DL Total Protein 7.2 6.4-8.2 GM/DL Albumin 4.0 3.2-4.5 GM/DL My Orders Orders - DYLAN MOSHER Cbc With Automated Diff (03/22/22 11:14) Comprehensive Metabolic Panel (03/22/22 11:14) Hs C Reactive Protein (03/22/22 11:14) Drug Screen Stat (Urine) (03/22/22 11:14) Ua Culture If Indicated (03/22/22 11:14) Ed Iv/Invasive Line Start (03/22/22 11:14) Ns Iv 1000 Ml (Sodium Chloride 0.9%) (03/22/22 11:15) Acetaminophen Tablet/Caplet (Tylenol T (03/22/22 11:24) Ketorolac Injection (Toradol Injection) (03/22/22 11:24) Covid 19 Inhouse Test (03/22/22 11:26) Influenza A And B By Pcr (03/22/22 11:26) Ct Abd/Pelvis Wo(Kidney Stone) (03/22/22 11:29) Urine Culture (03/22/22 11:15) Manual Differential (03/22/22 11:35) Ed Iv/Invasive Line Start (03/22/22 12:02) Ns Iv 1000 Ml (Sodium Chloride 0.9%) (03/22/22 12:15) Ceftriaxone (Rocephin) (03/22/22 12:45) Tamsulosin Capsule (Flomax Capsule) (03/22/22 12:35) Medications Given in ED Current Medications Medications Dose Ordered Sig/Doyle Route Start Time Stop Time Status Last Admin Dose Admin Ceftriaxone Sodium 2000 mg/ Sodium Chloride 50 ml @ 240 mls/hr ONCE ONCE IV 03/22/22 12:45 03/22/22 12:57 DC 03/22/22 13:05 240 MLS/HR Vital Signs/I&O 03/22/22 03/22/22 03/22/22 03/22/22 11:13 11:31 11:41 13:31 Temp 37.8 37.8 37.8 37.8 Pulse 117 102 Resp 22 18 B/P (MAP) 178/95 (122) 125/80 Pulse Ox 100 100 O2 Delivery Room Air Room Air Blood Pressure Mean: 122 Progress Progress Note : Time: 11:05 Progress Note Patient seen and evaluated, will obtain labs, UA urine, NS 1 L IV, Toradol and Tylenol. 1200 patient reports improvement in pain, awaiting CT. 1240 CT shows right stone. Will discuss with urology. 2nd L of NS. Rocephin 2gm IV. Flomax 0.4 mg PO 1300 patient reports no pain, N/V. Will strain urine and follow up with Dr. Aceves. Discharge instructions and return precautions reviewed with the patient. Departure Impression Primary Impression: Abdominal pain Qualified Codes: R10.31 - Right lower quadrant pain Additional Impressions: Urolithiasis Qualified Codes: N21.9 - Calculus of lower urinary tract, unspecified UTI (urinary tract infection) Qualified Codes: N30.00 - Acute cystitis without hematuria Disposition: HOME, SELF-CARE Condition: Improved Departure-Patient Inst. Decision time for Depature: 13:00 Referrals: [facility] [place] (PC[place]/Family) Primary Care Physician LEANDRO ACEVES MD Patient Instructions: Kidney Stones (DC), Urinary Tract Infection, Adult (DC) Add. Discharge Instructions: Take all medications, as prescribed. Obtain from Pharmacy when you leave the ER. [facility]. Appt made with Dr. Aceves for [facility] 03/29/22 at 3:15 pm If you are self pay, take $800 to your appt. Strain urine at all times for stone. If you pass the stone and your symptoms improve, call and cancel your appt. Increase water intake, 16 oz every 2 hours while awake. Return to the emergency dept for new, urgent health care problems. All discharge instructions reviewed with patient and/or family. Voiced understanding. Scripts Tamsulosin HCl (Flomax) 0.4 Mg Cap 0.4 MG PO DAILY, #14 CAP 0 Refills Prov: DYLAN MOSHER 03/22/22 Nitrofurantoin Macrocrystal (Nitrofurantoin) 100 Mg Capsule 100 MG PO BID, #14 CAP 0 Refills Prov: DYLAN MOSHER 03/22/22 Hydrocodone/Acetaminophen (Hydrocodone-Acetamin 5-325 mg) 5 Mg-325 Mg Tablet 1 TAB PO Q6H PRN for PAIN-MODERATE (5-7), #12 TAB 0 Refills Prov: DYLAN MOSHER 03/22/22 Ondansetron (Ondansetron Odt) 4 Mg Tab.rapdis 4 MG PO Q6H PRN for NAUSEA/VOMITING, #8 TAB 0 Refills Prov: DYLAN MOSHER 03/22/22 Work/School Note: Work Release Form Date Seen in the Emergency Department: Mar 22, 2022 Return to Work: Mar 25, 2022 Restrictions: No Restrictions Copy Copies To 1: LEANDRO ACEVES MD, AMY ARNP Mar 22, 2022 11:41
[2022-03-22 11:46] LABS: BASOPHILS % (AUTO) 0 % (0-10); EOSINOPHILS # (AUTO) 0.1 10^3/uL (0.0-0.3); EOSINOPHILS % (AUTO) 1 % (0-10); HEMATOCRIT 40 % (40-54); HEMOGLOBIN 13.4 g/dL (13.3-17.7); LYMPHOCYTES # (AUTO) 1.5 10^3/uL (1.0-4.0); LYMPHOCYTES % (AUTO) 9 % (12-44); MEAN CORPUSCULAR HEMOGLOBIN 32 pg (25-34); MEAN CORPUSCULAR HGB CONC 34 g/dL (32-36); MEAN CORPUSCULAR VOLUME 95 fL (80-99); MEAN PLATELET VOLUME 8.6 fL (9.0-12.2); MONOCYTES # (AUTO) 1.2 10^3/uL (0.0-1.0); MONOCYTES % (AUTO) 8 % (0-12); NEUTROPHILS # (AUTO) 12.7 10^3/uL (1.8-7.8); NEUTROPHILS % (AUTO) 81 % (42-75); PLATELET COUNT 259 10^3/uL (130-400); WHITE BLOOD COUNT 15.6 10^3/uL (4.3-11.0)
[2022-03-22 11:49] LABS: BACTERIA,URINE TRACE /HPF; RBC,URINE RARE /HPF; SQUAMOUS EPITHELIAL CELL,UR 0-2 /HPF
[2022-03-22 11:54] LABS: CALCIUM 9.3 MG/DL (8.5-10.1)
[2022-03-22 11:55] LABS: TOTAL PROTEIN 7.2 GM/DL (6.4-8.2)
[2022-03-22 11:56] LABS: AMPHETAMINE SCREEN, URINE POSITIVE (NEGATIVE); BARBITURATE SCREEN URINE NEGATIVE (NEGATIVE); BENZODIAZEPINES SCREEN URINE NEGATIVE (NEGATIVE); CANNABINOID SCREEN, URINE NEGATIVE (NEGATIVE); COCAINE SCREEN URINE NEGATIVE (NEGATIVE); METHADONE STAT NEGATIVE (NEGATIVE); OPIATE SCREEN URINE NEGATIVE (NEGATIVE); OXYCODONE STAT NEGATIVE (NEGATIVE); PROPOXYPHENE STAT NEGATIVE (NEGATIVE); TRICYCLIC ANTIDEPRESSANTS SCRE NEGATIVE (NEGATIVE)
[2022-03-22 11:57] LABS: BILIRUBIN,TOTAL 0.9 MG/DL (0.1-1.0)
[2022-03-22 11:59] LABS: CREATININE SERUM 1.06 MG/DL (0.60-1.30)
[2022-03-22 12:17] LABS: NEUTROPHILS % (MANUAL) 75 %
[2022-03-22 12:18] LABS: BAND NEUTROPHILS 0 %; BASOPHILS % (MANUAL) 0 %; EOSINOPHILS % (MANUAL) 0 %; LYMPHOCYTES % (MANUAL) 11 %; MONOCYTES % (MANUAL) 14 %; RBC MORPH NORMAL
--- NOTE | 2022-03-22 12:19 | Diagnostic Imaging Report ---
PROCEDURE: CT urinary tract, rule out kidney stone. TECHNIQUE: Multiple contiguous axial images were obtained through the abdomen and pelvis without the use of intravenous contrast. Auto Exposure Controls were utilized during the CT exam to meet ALARA standards for radiation dose reduction. INDICATION: Bilateral flank pain. COMPARISON: 05/17/2017. FINDINGS: The heart is unremarkable. Dependent opacities are seen in the lung bases. 2 calculi are visualized in the distal right ureter just proximal to the right UVJ measuring 3 to 4 mm. There is mild right-sided hydroureteronephrosis. No renal calculi or hydronephrosis is seen on the left. The urinary bladder is nondistended. The liver, spleen, pancreas, and adrenal glands have a normal noncontrast CT appearance. There is no pathologically enlarged mesenteric or retroperitoneal adenopathy. The bowel loops are nondilated. The appendix is visualized in the right lower quadrant and has a normal appearance. There is no free fluid or free air. No acute osseous abnormalities. There is calcified aortic and iliac atherosclerotic plaque without aneurysm. There is no free air, loculated collection, or adenopathy in the pelvis. IMPRESSION: 1. Calculi in the distal right ureter measuring 3 to 4 mm with mild right-sided hydroureteronephrosis. Dictated by: Dictated on workstation # [id number]
[2022-03-22] MEDS ORDERED: TAMSULOSIN 0.4 MG (FLOMAX) CAP PO STA (12:35)
[2022-03-22] MEDS ORDERED: cefTRIAXone 2,000 MG in NS (IVPB) 50 ML IV ONE (12:45)
[2022-03-22] MEDS ORDERED: ACHD5005 PO (13:02)
[2022-03-22] MEDS ORDERED: TMSL.4C PO (13:02)
[2022-03-22] MEDS ORDERED: ONDA4TAB11 PO (13:02)
[2022-03-22] MEDS ORDERED: NITR100C PO (13:02)
[2022-03-22 13:31] VITALS: BP 125/80
== END 2022-03-22 13:34 | disposition home or self-care (01) ==
LOC: EDUNIT# 10:48 → ER 10:51
DX: N39.0 Urinary tract infection, site not specified (principal); N20.9 Urinary calculus, unspecified; Z20.822 Contact with and (suspected) exposure to COVID-19; Z28.310 Unvaccinated for COVID-19
CPT/HCPCS: 36415; 74176; 80053; 80306; 81000; 85007; 85027; 86141; 87077; 87088; 87636

== ENCOUNTER 2022-06-16 21:23 | Emergency (ER) | payer SELFPAY ==
[~2022-06-16] VITALS: Ht 180.3 cm; Wt 74.0 kg
[~2022-06-16 21:23] MED LIST changes: +ACHD5005 PO; +NITR100C PO; +ONDA4TAB11 PO; +TMSL.4C PO
[2022-06-16] MEDS ORDERED: ONDANSETRON 4 MG/2 ML (SDV) Z0FRAN IVP ONE (21:45)
[2022-06-16] MEDS ORDERED: morphine INJ 4 MG/ML 1 ML (VIAL/SYRINGE) IVP ONE (21:45)
[2022-06-16] MEDS ORDERED: morphine INJ 10 MG/ML 1ML (SYR OR VIAL) ONE (21:50)
[2022-06-16 22:11] LABS: BASOPHILS # (AUTO) 0.1 10^3/uL (0.0-0.1); BASOPHILS % (AUTO) 0 % (0-10); EOSINOPHILS # (AUTO) 0.5 10^3/uL (0.0-0.3); EOSINOPHILS % (AUTO) 3 % (0-10); HEMATOCRIT 44 % (40-54); HEMOGLOBIN 14.6 g/dL (13.3-17.7); LYMPHOCYTES # (AUTO) 3.3 10^3/uL (1.0-4.0); LYMPHOCYTES % (AUTO) 22 % (12-44); MEAN CORPUSCULAR HEMOGLOBIN 31 pg (25-34); MEAN CORPUSCULAR HGB CONC 34 g/dL (32-36); MEAN CORPUSCULAR VOLUME 93 fL (80-99); MEAN PLATELET VOLUME 9.2 fL (9.0-12.2); MONOCYTES # (AUTO) 1.1 10^3/uL (0.0-1.0); MONOCYTES % (AUTO) 7 % (0-12); NEUTROPHILS # (AUTO) 9.7 10^3/uL (1.8-7.8); NEUTROPHILS % (AUTO) 66 % (42-75); PLATELET COUNT 295 10^3/uL (130-400); WHITE BLOOD COUNT 14.6 10^3/uL (4.3-11.0)
--- NOTE | 2022-06-16 22:12 | ED General ---
General Chief Complaint: Back Problems Stated Complaint: BACK PAIN Nursing Triage Note: PT AMB TO FT 1 W C/O MID AND LEFT SIDED FLANK PAIN X1 HR, PT ALSO REPORTS PAIN RADIATES DOWN TO LEFT TESTICLE - STATES PT SCROTUM IS RED AND WARM. PT A&OX4. Source of Information: Patient Exam Limitations: No Limitations History of Present Illness Date Seen by Provider: Jun 16, 2022 Time Seen by Provider: 21:45 Initial Comments 52-year-old male presents for left groin, testicular pain. Symptoms started a couple of hours prior to arrival and have been constant sharp stabbing without radiation. No aggravating or alleviating factors. No urinary symptoms. No change in bowels. No fevers chills nausea or vomiting. He does have a history of kidney stones Allergies and Home Medications Allergies Coded Allergies: No Known Drug Allergies (Unverified , 02/17/16) Patient Home Medication List Home Medication List Reviewed: Yes Cephalexin (Cephalexin) 500 Mg Tablet, 500 MG PO TID Prescribed by: HEDY GRAHAM MD on 06/16/22 2353 Hydrocodone/Acetaminophen (Hydrocodone-Acetamin 5-325 mg) 5 Mg-325 Mg Tablet, 1 TAB PO Q6H PRN for PAIN-MODERATE (5-7) Prescribed by: DYLAN MOSHER on 03/22/22 1304 Ibuprofen (Ibuprofen) 600 Mg Tablet, 600 MG PO Q8H, (Reported) Entered as Reported by: SAMANTHA KIRAN on 02/18/16 1001 Levofloxacin (Levaquin) 500 Mg Tablet, 500 MG PO DAILY Prescribed by: CLAUDIA BRAGG on 05/17/17 1910 Nitrofurantoin Macrocrystal (Nitrofurantoin) 100 Mg Capsule, 100 MG PO BID Prescribed by: DYLAN MOSHER on 03/22/22 1302 Ondansetron (Ondansetron Odt) 4 Mg Tab.rapdis, 4 MG PO Q6H PRN for NAUSEA/VOMITING Prescribed by: DYLAN MOSHER on 03/22/22 1302 Tamsulosin HCl (Flomax) 0.4 Mg Cap, 0.4 MG PO DAILY Prescribed by: DYLAN MOSHER on 03/22/22 1302 Review of Systems Review of Systems Constitutional: no symptoms reported EENTM: no symptoms reported Respiratory: no symptoms reported Cardiovascular: no symptoms reported Gastrointestinal: abdominal pain Genitourinary: other (Left testicular pain) Musculoskeletal: no symptoms reported Skin: no symptoms reported Psychiatric/Neurological: No Symptoms Reported Hematologic/Lymphatic: No Symptoms Reported Immunological/Allergic: no symptoms reported Past Jlkihzh-Odqfqi-Pnlyuu Hx Patient Social History Tobacco Use?: Yes Tobacco type used: Cigarettes Smoking Status: Current Everyday Smoker Use of E-Cig and/or Vaping dev: Yes E-Cig or Vaping type used: Nicotine Use of E-Cig and/or Vaping Saul: Current Someday User Substance use?: No Additional substance use comme: 21 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 Immunizations Up To Date Tetanus Booster (TDap): Unknown PED Vaccines UTD: Yes Influenza Vaccine Up-to-Date: No; Not Current First/Initial COVID19 Vaccinat: NONE Second COVID19 Vaccination Gavin: NONE Third COVID19 Vaccination Date: NONE COVID19 Vaccine Packaging Designer: NONE Past Medical History Surgeries: Yes Tonsillectomy Respiratory: No Neurological: No Headaches /Migraines Reproductive Disorders: No Gastrointestinal: No Musculoskeletal: Yes (elbow pain) Endocrine: No Loss of Vision: Denies Hearing Impairment: Denies Cancer: No Psychosocial: Yes Depression Integumentary: No Blood Disorders: No Adverse Reaction/Blood Tranf: No Family Medical History Reviewed Nursing Family Hx No Pertinent Family Hx Physical Exam Vital Signs Vital Signs - First Documented 06/16/22 21:30 Temp 36.7 Pulse 121 Resp 20 B/P (MAP) 154/112 (126) Pulse Ox 100 O2 Delivery Room Air Capillary Refill : Less Than 3 Seconds Height, Weight, BMI Height: 5'6" Weight: 145lbs. 6.4oz. [id number]; 22.00 BMI Method:Stated General Appearance: No Apparent Distress, WD/WN HEENT: PERRL/EOMI, Normal ENT Inspection, Pharynx Normal Neck: Full Range of Motion, Normal Inspection, Non Tender, Supple Respiratory: Chest Non Tender, Lungs Clear, Normal Breath Sounds, No Accessory Muscle Use, No Respiratory Distress Cardiovascular: Regular Rate, Rhythm, No Edema, No Gallop, No JVD, No Murmur, Normal Peripheral Pulses Gastrointestinal: Normal Bowel Sounds, No Organomegaly, Soft, Other (Tenderness palpation left groin, left testicle.) Genital/Rectal: Other (Left testicle shows normal alignment, no swelling. Mild tenderness palpation superior pole. Normal cremasteric reflex.) Extremity: Normal Capillary Refill, Normal Inspection, Normal Range of Motion, Non Tender, No Calf Tenderness Neurologic/Psychiatric: Alert, Oriented x3, Normal Mood/Affect Skin: Normal Color, Warm/Dry Lymphatic: No Adenopathy Procedures/Interventions Date of ETT Placement: Nov 02, 2019 Time of ETT Placement: 1818 Progress/Results/Core Measures Suspected Sepsis SIRS Temperature: Pulse: 121 Respiratory Rate: 20 Laboratory Tests 06/16/22 21:58: White Blood Count 14.6H Blood Pressure 154 /112 Mean: 126 Laboratory Tests 06/16/22 21:58: Creatinine 1.33H, Platelet Count 295, Total Bilirubin 0.3 Results/Orders Lab Results Laboratory Tests Test 06/16/22 21:58 06/16/22 23:07 Range/Units White Blood Count 14.6 H 4.3-11.0 10^3/uL Red Blood Count 4.67 4.30-5.52 10^6/uL Hemoglobin 14.6 13.3-17.7 g/dL Hematocrit 44 40-54 % Mean Corpuscular Volume 93 80-99 fL Mean Corpuscular Hemoglobin 31 25-34 pg Mean Corpuscular Hemoglobin Concent 34 32-36 g/dL Red Cell Distribution Width 12.5 10.0-14.5 % Platelet Count 295 130-400 10^3/uL Mean Platelet Volume 9.2 9.0-12.2 fL Immature Granulocyte % (Auto) 0 % Neutrophils (%) (Auto) 66 42-75 % Lymphocytes (%) (Auto) 22 12-44 % Monocytes (%) (Auto) 7 0-12 % Eosinophils (%) (Auto) 3 0-10 % Basophils (%) (Auto) 0 0-10 % Neutrophils # (Auto) 9.7 H 1.8-7.8 10^3/uL Lymphocytes # (Auto) 3.3 1.0-4.0 10^3/uL Monocytes # (Auto) 1.1 H 0.0-1.0 10^3/uL Eosinophils # (Auto) 0.5 H 0.0-0.3 10^3/uL Basophils # (Auto) 0.1 0.0-0.1 10^3/uL Immature Granulocyte # (Auto) 0.1 0.0-0.1 10^3/uL Sodium Level 141 135-145 MMOL/L Potassium Level 4.1 3.6-5.0 MMOL/L Chloride Level 103 98-107 MMOL/L Carbon Dioxide Level 25 21-32 MMOL/L Anion Gap 13 5-14 MMOL/L Blood Urea Nitrogen 16 7-18 MG/DL Creatinine 1.33 H 0.60-1.30 MG/DL Estimat Glomerular Filtration Rate 64 BUN/Creatinine Ratio 12 Glucose Level 127 H 70-105 MG/DL Calcium Level 9.9 8.5-10.1 MG/DL Corrected Calcium 9.7 8.5-10.1 MG/DL Total Bilirubin 0.3 0.1-1.0 MG/DL Aspartate Amino Transf (AST/SGOT) 39 H 5-34 U/L Alanine Aminotransferase (ALT/SGPT) 99 H 0-55 U/L Alkaline Phosphatase 126 40-136 U/L Total Protein 7.7 6.4-8.2 GM/DL Albumin 4.3 3.2-4.5 GM/DL Urine Color YELLOW Urine Clarity CLOUDY H Urine pH 6.5 5-9 Urine Specific [place] 1.020 1.016-1.022 Urine Protein 1+ H NEGATIVE Urine Glucose (UA) NEGATIVE NEGATIVE Urine Ketones NEGATIVE NEGATIVE Urine Nitrite NEGATIVE NEGATIVE Urine Bilirubin NEGATIVE NEGATIVE Urine Urobilinogen 0.2 < = 1.0 MG/DL Urine Leukocyte Esterase 3+ H NEGATIVE Urine RBC (Auto) 3+ H NEGATIVE Urine RBC 25-50 H /HPF Urine WBC 25-50 H /HPF Urine Squamous Epithelial Cells RARE /HPF Urine Crystals NONE /LPF Urine Bacteria MODERATE H /HPF Urine Casts NONE /LPF Urine Mucus NEGATIVE /LPF Urine Culture Indicated YES My Orders Orders - HEDY GRAHAM DO Comprehensive Metabolic Panel (06/16/22 21:38) Ua Culture If Indicated (06/16/22 21:38) Ct Abd/Pelvis Wo(Kidney Stone) (06/16/22 21:38) Cbc With Automated Diff (06/16/22 21:38) Morphine Injection (Morphine Injection (06/16/22 21:45) Ondansetron Injection (Zofran Injectio (06/16/22 21:45) Morphine Injection (Morphine Injection (06/16/22 21:50) Hydromorphone Injection (Dilaudid Inject (06/16/22 22:45) Us Scrotum (Testicle) [id number] (06/16/22 22:36) Urine Culture (06/16/22 23:07) Cephalexin Capsule (Keflex Capsule) (06/17/22 00:00) Medications Given in ED Current Medications Medications Dose Ordered Sig/Doyle Route Start Time Stop Time Status Last Admin Dose Admin Hydromorphone HCl 0.5 mg ONCE ONCE IV 06/16/22 22:45 06/16/22 22:46 DC 06/16/22 23:29 0.5 MG Morphine Sulfate 10 mg STK-MED ONCE .ROUTE 06/16/22 21:50 06/16/22 21:55 DC 06/16/22 22:02 4 MG Ondansetron HCl 4 mg ONCE ONCE IVP 06/16/22 21:45 06/16/22 21:46 DC 06/16/22 22:02 4 MG Vital Signs/I&O 06/16/22 21:30 Temp 36.7 Pulse 121 Resp 20 B/P (MAP) 154/112 (126) Pulse Ox 100 O2 Delivery Room Air Capillary Refill : Less Than 3 Seconds Blood Pressure Mean: 126 Departure Communication (Admissions) Patient is hemodynamically stable. He is pain-free at the time of discharge. CT scan negative for any acute findings including kidney stones or other acute pathology no evidence for obstruction, renal masses. No evidence of diverticular disease. Left testicular ultrasound obtained to rule out torsion. Negative. Does have a urinary tract infection. Previous culture showed Proteus mirabilis. He states he was unable to afford the antibiotics but he had recovered.Given Keflex which Proteus was sensitive to previous. He is discharged home in stable condition. Impression Primary Impression: UTI (urinary tract infection) Qualified Codes: N30.01 - Acute cystitis with hematuria Disposition: HOME, SELF-CARE Condition: Stable Departure-Patient Inst. Referrals: [facility] (PCP/Family) Primary Care Physician Patient Instructions: Urinary Tract Infection, Adult (DC) Add. Discharge Instructions: Take antibiotics as prescribed until gone. Use Motrin and Tylenol as needed for pain. Return to the emergency department for any severe concerns. Follow-up with primary doctor for any nonemergent needs. All discharge instructions reviewed with patient and/or family. Voiced understanding. Scripts Cephalexin (Cephalexin) 500 Mg Tablet 500 MG PO TID for 7 Days, #21 TAB Prov: HEDY GRAHAM DO 06/16/22 HEDY GRAHAM DO Jun 16, 2022 22:12
--- NOTE | 2022-06-16 22:16 | Diagnostic Imaging Report ---
PROCEDURE: CT urinary tract, rule out kidney stone. TECHNIQUE: Multiple contiguous axial images were obtained through the abdomen and pelvis without the use of intravenous contrast. Auto Exposure Controls were utilized during the CT exam to meet ALARA standards for radiation dose reduction. INDICATION: Left inguinal and left flank pain. COMPARISON: 03/22/2022 FINDINGS: Included portions of the lung bases are clear. CT ABDOMEN: Normal appendix is identified. Small bowel loops are nondistended. The kidneys, adrenal glands, spleen, pancreas, and liver have an unremarkable noncontrast CT appearance. There is no loculated fluid collection, free fluid or free air within the abdomen. No abnormal mesenteric or retroperitoneal adenopathy is seen. Mild scattered calcified aortic arch atherosclerosis is noted. Osseous structures show no acute abnormalities. CT PELVIS: Urinary bladder is unopacified. No calculi are seen within urinary bladder. There is no loculated fluid collection, free fluid or free air within the pelvis. No abnormal lymph nodes are seen. Osseous structures show no acute abnormalities IMPRESSION:. No acute abnormalities seen within the abdomen or pelvis. Dictated by: Dictated on workstation # [id number]
[2022-06-16 22:33] LABS: ALBUMIN 4.3 GM/DL (3.2-4.5); BILIRUBIN,TOTAL 0.3 MG/DL (0.1-1.0); CALCIUM 9.9 MG/DL (8.5-10.1); CREATININE SERUM 1.33 MG/DL (0.60-1.30); POTASSIUM 4.1 MMOL/L (3.6-5.0); TOTAL PROTEIN 7.7 GM/DL (6.4-8.2)
[2022-06-16] MEDS ORDERED: HYDROmorphone 2 MG/ML VIAL (DILAUDID) IV ONE (22:45)
[2022-06-16 23:13] LABS: BILIRUBIN,URINE NEGATIVE (NEGATIVE); COLOR,URINE YELLOW; GLUCOSE, URINE (UA) NEGATIVE (NEGATIVE); KETONES,URINE NEGATIVE (NEGATIVE); LEUKOCYTE ESTERASE ,URINE 3+ (NEGATIVE); NITRITE,URINE NEGATIVE (NEGATIVE); PH,URINE 6.5 (5-9); PROTEIN,URINE 1+ (NEGATIVE)
[2022-06-16 23:20] LABS: BACTERIA,URINE MODERATE /HPF; CLARITY,URINE CLOUDY; RBC,URINE 25-50 /HPF; SQUAMOUS EPITHELIAL CELL,UR RARE /HPF; WBC,URINE 25-50 /HPF
[2022-06-16] MEDS ORDERED: CEPH500T PO (23:53)
[2022-06-17] MEDS ORDERED: CEPHALEXIN 250 MG (KEFLEX) CAP PO SCH
[2022-06-17 00:10] VITALS: BP 136/87
--- NOTE | 2022-06-17 07:52 | Diagnostic Imaging Report ---
PROCEDURE: US Scrotum w/ Duplex TECHNIQUE: Multiple realtime murray images were obtained of the scrotum in various projections bilaterally. Color Doppler images were also obtained. INDICATION: Left-sided testicular pain. COMPARISON: None. FINDINGS: The testicles are normal in size, shape and echogenicity. The right testis measures 4.3 x 1.7 x 2.4 cm. The left testis measures 3.6 x 1.7 x 2.8 cm. There is normal color flow Doppler signal of both testicles. No focal testicular mass is seen on either side. The right and left epididymides are unremarkable. There is no sonographic evidence of epididymitis. Small left-sided varicocele is seen. IMPRESSION: 1. Normal testicular sonogram. 2. Small left-sided varicocele. Agree with overnight report. Dictated by: Dictated on workstation # [id number]
== END 2022-06-17 00:10 | disposition home or self-care (01) ==
LOC: EDUNIT# 21:23 → ER 21:26
DX: N39.0 Urinary tract infection, site not specified (principal); F17.210 Nicotine dependence, cigarettes, uncomplicated; F17.290 Nicotine dependence, other tobacco product, uncomplicated; Z28.310 Unvaccinated for COVID-19; Z87.442 Personal history of urinary calculi
CPT/HCPCS: 36415; 74176; 76870; 80053; 81000; 85025; 87088